=== PATIENT | male | born 1995 | race African-American/Black ===

== ENCOUNTER 2018-04-16 10:36 | Emergency (ER) | payer OTHER ==
[2018-04-16] MEDS ORDERED: IBUPROFEN 600 MG TABLET PO ONE (11:54)
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
[2018-04-16 13:16] VITALS: BP 127/90
== END 2018-04-16 13:15 | disposition home or self-care (01) ==
LOC: ER 10:36
DX: S09.90XA Unspecified injury of head, initial encounter (principal); R51 Headache; V47.5XXA Car driver injured in collision with fixed or stationary object in traffic accident, initial encounter; F12.10 Cannabis abuse, uncomplicated
CPT/HCPCS: 70450; 99284